=== PATIENT | male | born 1970 ===

== ENCOUNTER 2017-05-28 07:45 | Outpatient (CLI) | payer OTHER | END 2017-05-28 15:37 | disposition home or self-care (01) | LOC: SONOGRAMA 07:45 | DX: N62 Hypertrophy of breast (principal) ==

== ENCOUNTER 2017-06-05 08:28 | Outpatient (CLI) | payer OTHER | END 2017-06-05 17:00 | disposition home or self-care (01) | LOC: MAMO-SONO 08:28 | DX: N63.41 Unspecified lump in right breast, subareolar (principal) ==

== ENCOUNTER 2018-06-30 16:54 | Emergency (ER) | payer OTHER ==
[~2018-06-30] VITALS: Ht 172.7 cm; Wt 134.3 kg
[2018-06-30] MEDS ORDERED: CARDIZEM CD360 MG (17:14)
[2018-06-30] MEDS ORDERED: HYZAAR 100-251 EACH (17:14)
[2018-06-30] MEDS ORDERED: SYNTHROID50 MCG (17:15)
[2018-07-01] MEDS ORDERED: JARDIANCE10 MG PO (07:42)
[2018-07-01] MEDS ORDERED: LIPITOR20 MG PO (07:42)
[2018-07-01] MEDS ORDERED: OSTERA TABLET1 EACH PO (07:43)
[2018-07-01] MEDS ORDERED: NOVOLIN 70100 UNIT/1 SUBCUTANEO ×2 (10:14→10:15)
== END 2018-06-30 22:32 | disposition home or self-care (01) ==
LOC: ER 16:54
DX: G44.209 Tension-type headache, unspecified, not intractable (principal); I10 Essential (primary) hypertension

== ENCOUNTER 2018-07-01 07:31 | Inpatient (IN) | payer OTHER ==
[~2018-07-01] VITALS: Ht 172.7 cm; Wt 134.3 kg
[~2018-07-01 07:31] MED LIST: CARDIZEM CD360 MG; HYZAAR 100-251 EACH; SYNTHROID50 MCG
[2018-07-01] MEDS ORDERED: LIPITOR20 MG PO (07:42)
[2018-07-01] MEDS ORDERED: JARDIANCE10 MG PO (07:42)
[2018-07-01] MEDS ORDERED: OSTERA TABLET1 EACH PO (07:43)
--- NOTE | 2018-07-01 07:44 | NUR ---
PTE REFIERE DOLOR DE NANI Y TEJAS PRECION DESDE HACE VARIOS ROLAND. PTE CON REFERIDO DEL DR.PEDRO PEREZ.
--- NOTE | 2018-07-01 08:18 | NUR ---
SE RECIBE EN UNIDAD CHEST PAIN EN EARLINE #16;MASCULINO DE 47 ANOS,ALERTA,ORIENTADO EN ROBERTH ESFERAS,EN COMPANIA DE FAMILIAR.SE CONECTA A MONITOR CARDIACIO, OXIMETRIA DE PULSO CONTINUA. SE MIDEN SV LOS CUALES SE DOCUMENTAN. .RENTA EVALUA PACIENTE Y ORDENA TRATAMIENTO MEDICO DEL CUAL SE ORIENTA PACIENTE Y FAMILIAR,AMBOS REFIEREN COMPRENDER. SE COLECTAN MUESTRAS DE LABORATORIOS,LAS CUALES SON ROTULADAS Y ENVIADAS PARA ANALISIS. SE ADMINISTRA MEDICAMENTO K[place]IL ORDEN MEDICA;PACIENTE NO PRESENTA REACCION ADVERSA. SE CANALIZA EN BRAZO RT UTILIZANDO ANGIO #18,AREA [place],SECA,FILIBERTO DE S/S EDEMA Y/O ERITEMA. SE CHOLO PACIENTE DESCANSANDO EN CAMA. SE MANTIENE BAJO OBSERVACION POR CAMBIOS EN CONDICION.
--- NOTE | 2018-07-01 08:18 | NUR ---
CONSULTA PACIENTE CON MD INTERNISTA .
--- NOTE | 2018-07-01 08:43 | NUR ---
SE RECIBE LLAMADA DE PERSONAL DE LABORATORIO ENOCH QUIEN REFIERE MUESTRAS DE CARDIAC PRO,TSH,TROPONINAS ESTAN HEMOLIZADAS. SE ORIENTA PACIENTE SOBRE EMBER DE MUESTRAS,EL MISMO REFIERE COMPRENDER. SE COLECTAN MUESTRAS LAS CUALES SON ROTULADAS Y ENVIADAS PARA ANALISIS.PROCEDIMIENTO LLEVADO BAJO MEDIDAS ASEPTICAS. PACIENTE TOLERA EL MISMO.
[2018-07-01] MEDS ORDERED: NOVOLIN 70100 UNIT/1 SUBCUTANEO ×2 (10:14→10:15)
--- NOTE | 2018-07-01 15:25 | NUR ---
SE RECIBE MASCULINO ALERTA Y ORIENTADO EN LAS 3 ESFERAS EN CAMA CON BARANDAS ELEVADAS POR SEGURIDAD EN COMPANIA DE FAMILIAR EN LA UNIDAD DE DOLOR DE PECHO. PRESENTANDO BUEN PATRON RESPIRATORIO. H/L EN ANTEBRAZO DERECHO, EL CUAL SE ENCUENTRA FILIBERTO DE EDEMA Y ERITEMA. SE ORIENTA A PTE SOBRE CONTINUIDAD DE TX MEDICO. PTE REFIERE COMPRENDER. SE MIDEN SIGNOS VITALES Y SE REPORTAN. SE MANTIENE EN OBSERVACION POR CAMBIOS EN CONDICION MEDICA.
== END 2018-07-09 11:20 | disposition home or self-care (01) | DRG 682 ==
LOC: ER 07:31 → MEDI 19:19
PROVIDERS: ADMIT Internal Medicine Cardiovascular Disease
PROC: BT4JZZZ Ultrasonography of Kidneys and Bladder (ICD-10-PCS; principal; 2018-07-01)
PROC: B030ZZZ Magnetic Resonance Imaging (MRI) of Brain (ICD-10-PCS; 2018-07-04)
PROC: B246ZZZ Ultrasonography of Right and Left Heart (ICD-10-PCS; 2018-07-07)
PROC: 4A12X4Z Monitoring of Cardiac Electrical Activity, External Approach (ICD-10-PCS; 2018-07-07)
DX: I12.9 Hypertensive chronic kidney disease with stage 1 through stage 4 chronic kidney disease, or unspecified chronic kidney disease (principal); I63.331 Cerebral infarction due to thrombosis of right posterior cerebral artery; G81.94 Hemiplegia, unspecified affecting left nondominant side; E11.22 Type 2 diabetes mellitus with diabetic chronic kidney disease; N18.3 Chronic kidney disease, stage 3 (moderate); Z79.4 Long term (current) use of insulin; G44.209 Tension-type headache, unspecified, not intractable; E11.21 Type 2 diabetes mellitus with diabetic nephropathy; R29.701 NIHSS score 1; I69.320 Aphasia following cerebral infarction
CPT/HCPCS: 70553